=== PATIENT | female | born 1990 | race Caucasian/White ===

== ENCOUNTER → 2018-06-14 09:36 | Outpatient (CLI) | payer OTHER, SELFPAY ==
[2018-06-14 11:33] LABS: Free T4, Direct Thyroxine 1.02 ng/dL (0.78-2.19)
[2018-06-14 11:47] LABS: Thyroid Stimulating Hormone 3.66 uIU/mL (0.47-4.68)
[2018-06-16 15:58] LABS: Triiodothyronine T3 Total 108 ng/dL (76-181)
== END ==
PROVIDERS: PCP Family Medicine; Visit Provider Internal Medicine Endocrinology, Diabetes & Metabolism
DX: E06.3 Autoimmune thyroiditis (principal)
CPT/HCPCS: 36415; 84439; 84443; 84480